=== PATIENT | male | born 1990 | race Two or more races ===

== ENCOUNTER 2024-05-12 22:25 | Emergency (ER) | payer SELFPAY ==
[~2024-05-12] VITALS: Ht 175.3 cm; Wt 81.8 kg
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
[2024-05-12 22:52] LABS: Basophils # (auto) 0 10 ^3/uL (0-0.2); Basophils % (auto) 0.2 % (0.0-2.0); Eosinophils # (auto) 0.1 10 ^3/uL (0-0.8); Eosinophils % (auto) 1.6 % (0.0-7.0); Hematocrit 43.9 % (41.0-53.0); Hemoglobin 15.3 g/dL (13.5-17.5); Lymphocytes # (auto) 1.3 10 ^3/uL (0.4-5.4); Lymphocytes % (auto) 19.4 % (10.0-50.0); Mean Corpuscular Hemoglobin 30.5 pg (28.0-32.0); Mean Corpuscular Hgb Conc. 34.9 g/dL (32.0-36.0); Mean Corpuscular Volume 87.4 fL (80.0-100.0); Monocytes # (auto) 0.6 10 ^3/uL (0-1.3); Monocytes % (auto) 8.7 % (0.0-12.0); Neutrophils # (auto) 4.7 10 ^3/uL (1.6-8.6); Neutrophils % (auto) 70.1 % (37.0-80.0); Platelet Count (auto) 231 10^3/uL (140-450); Red Blood Cells 5.02 10^6/uL (4.5-5.90); White Blood Cell 6.7 10^3/uL (4.4-10.8)
[2024-05-12 23:16] LABS: Acetaminophen < 2.0 UG/ML (10.0-20.0)
[2024-05-12 23:19] LABS: Salicylate < 3.0 mg/dL (-30)
[2024-05-12 23:23] LABS: Alanine Aminotransferase 46 U/L (7-40); Albumin 4.6 g/dL (3.2-4.8); Alkaline Phosphatase 79 U/L (46-116); Anion Gap 17 (5-15); Aspartate Aminotransferase 60 U/L (13-40); BUN/Creatinine Ratio 16.4 (10.0-20.0); Bilirubin, Total 2.5 mg/dL (0.2-1.0); Blood Alcohol 4.5 mg/dL (<10); Blood Urea Nitrogen 21 mg/dL (9-23); Calcium 9.8 mg/dL (8.7-10.4); Carbon Dioxide 14 mmol/L (20-31); Chloride 106 mmol/L (98-107); Glucose 142 mg/dL (74-106); Potassium 3.1 mmol/L (3.5-5.1); Sodium 137 mmol/L (136-145); Total Protein 7.4 g/dL (5.7-8.2)
--- NOTE | 2024-05-13 01:08 | DVH ---
EXAM: XY CHEST PORTABLE CLINICAL HISTORY: aloc TECHNIQUE: Single AP view of the chest WID: COMPARISON: None FINDINGS: Lines and tubes: None Chest: The heart size and pulmonary vasculature is within normal limits. No pleural effusion, pneumothorax, or consolidation. The osseous structures are grossly intact. IMPRESSION: No acute cardiopulmonary abnormality.
--- NOTE | 2024-05-13 01:38 | DVH ---
CLINICAL HISTORY: aloc TECHNIQUE: Helical imaging carried out from skull base to vertex without intravenous contrast. This e xam was performed according to our departmental dose optimization program. Up-to-date CT equipment an d radiation dose reduction techniques are utilized as appropriate. WID: COMPARISON: None FINDINGS: The ventricles and subarachnoid spaces are normal in size and configuration. There is no midline em ft or mass effect. The julian white matter interfaces are maintained. The basal cisterns are patent. Th ere is no evidence of acute intracranial hemorrhage or extra-axial fluid collection. The mastoid air cells and visualized paranasal sinuses are well-aerated. IMPRESSION: No acute intracranial abnormality.
[2024-05-13 02:28] VITALS: BP 139/85; TEMP 98.6
[2024-05-13] MEDS: SODIUM CHLORIDE 0.9% 3,000 ML IV ONE (02:28)
[2024-05-13 02:29] VITALS: PULSE 103; RESP 17; O2SAT 98
== END 2024-05-13 02:35 ==
LOC: ER 22:25 → EDBD 22:25 → ER 05-13 02:35
DX: R40.4 Transient alteration of awareness (principal); F19.10 Other psychoactive substance abuse, uncomplicated; E87.6 Hypokalemia; R79.89 Other specified abnormal findings of blood chemistry; F17.200 Nicotine dependence, unspecified, uncomplicated
CPT/HCPCS: 36415; 70450; 71045; 80053; 80320; 80329; 85025